=== PATIENT | male | born 1980 | race Caucasian/White ===

== ENCOUNTER → 2019-09-16 10:49 | Outpatient (CLI) | payer OTHER, MEDICAID, SELFPAY ==
--- NOTE | 2019-09-16 | DI.CT.S_ITS ---
PROCEDURE: CT LE LT W CON INDICATIONS: Arthrodesis status,Primary osteoarthritis, left ankle, foot. TECHNIQUE: Noncontrast 1-1.5 mm axial sections acquired from above the tibiotalar joint to the bottom of the calcaneus, with coronal and sagittal reformats. COMPARISON: [facility], CR, XR FOOT 3 VIEWS WEIGHT BEARING LEFT, 02/16/2019, 14:08. [facility], CR, XR FOOT 3 VIEWS WEIGHT BEARING LEFT, 09/30/2018, 16:04. [facility], CR, XR FOOT 3 VIEWS WEIGHT BEARING LEFT, 05/01/2018, 13:29. [facility], CR, XR FOOT 3 VIEWS WEIGHT BEARING LEFT, 09/26/2017, 10:00. FINDINGS: Image quality: Diagnostic Bones: There is no acute fracture, dislocation, or suspicious osseous lesion identified involving the osseous structures of the left foot. Postoperative changes related to bony fusion of the talonavicular joint are evident. There is slight lucency surrounding the more superior position orthopedic screw and potentially also be inferior orthopedic screw. The talonavicular joint line remains open. Prominent degenerative changes are noted. There is a very small plantar calcaneal spur. The bone mineralization is decreased. Soft tissues: No soft tissue masses or drainable fluid collections are identified. Please note that the ligamentous, tendinous, and cartilaginous structures are not well evaluated on CT. Incidental note is made of os tibiale externum. No significant atrophy is appreciated involving the intrinsic muscles of the foot. IMPRESSION: 1. Talonavicular joint fusion. The hardware is intact. However, lucency is surrounding the orthopedic screws does raise suspicion for loosening. 2. The talonavicular joint remains open. 3. No fractures. Dictated by: Jasper Garces M.D. on 09/16/2019 at 11:58 Approved by: Jasper Garces M.D. on 09/16/2019 at 12:25
== END ==
PROVIDERS: PCP Family Medicine
DX: M19.072 Primary osteoarthritis, left ankle and foot (principal); Z98.1 Arthrodesis status
CPT/HCPCS: 73700

== ENCOUNTER → 2021-07-28 14:25 | Outpatient (CLI) | payer OTHER, MEDICAID, SELFPAY ==
[2021-07-28 20:56] LABS: HIV 1 & 2 Ab/Ag 4th Gen Combo NEGATIVE (NEGATIVE)
[2021-07-28 21:05] LABS: Urine N gonorrhoeae NOT DETECTED
[2021-07-28 21:20] LABS: Urine Chlamydia NOT DETECTED
[2021-07-30 04:31] LABS: RPR Screen Non Reactive (Non Reactive)
[2021-07-30 08:08] LABS: HBsAg Screen Negative (Negative); Hepatitis A Antibody IgM Negative (Negative); Hepatitis B Core Antibody IgM Negative (Negative); Hepatitis C Antibody <0.1 s/co ratio (0.0-0.9)
[2021-07-30 11:07] LABS: HSV 2 IGG AB < 0.91 index (0.00-0.90); HSV1IGG < 0.91 index (0.00-0.90)
== END ==
PROVIDERS: PCP Family Medicine; Visit Provider Family Medicine
DX: Z11.3 Encounter for screening for infections with a predominantly sexual mode of transmission (principal)
CPT/HCPCS: 80074; 86592; 86695; 86696; 87389; 87491; 87591

== ENCOUNTER → 2022-06-05 11:13 | Outpatient (CLI) | payer OTHER, SELFPAY ==
--- NOTE | 2022-06-05 | DI.RAD.S_ITS ---
PROCEDURE: XR SHOULDER RT MIN 2V INDICATIONS: RIGHT SHOULDER PAIN TECHNIQUE: 3 views of the shoulder were acquired. COMPARISON: None. FINDINGS: Bones: No fractures or dislocations. No suspicious bony lesions. Visualized ribs appear intact. Humeral head is slightly high-riding. Soft tissues: No suspicious soft tissue calcifications. IMPRESSION: High riding appearance of the humeral head, which can be indicative of rotator cuff pathology. Dictated by: Isis Hardwick M.D. on 06/05/2022 at 12:41 Approved by: Isis Hardwick M.D. on 06/05/2022 at 12:41
== END ==
PROVIDERS: PCP Family Medicine; Referring Provider Internal Medicine Cardiovascular Disease; Visit Provider Internal Medicine Cardiovascular Disease
DX: M25.511 Pain in right shoulder (principal)
CPT/HCPCS: 73030

== ENCOUNTER → 2023-01-31 08:59 | Outpatient (CLI) | payer MEDICARE, MEDICAID, SELFPAY | PROVIDERS: PCP Family Medicine; Visit Provider Family Medicine | DX: F11.20 Opioid dependence, uncomplicated (principal); R82.5 Elevated urine levels of drugs, medicaments and biological substances | CPT/HCPCS: 80324 ==

== ENCOUNTER → 2023-03-05 09:29 | Outpatient (CLI) | payer MEDICARE, MEDICAID, SELFPAY ==
[2023-03-05 19:45] LABS: Add Manual Diff / Slide Review NO; Basophils Absolute Auto 100 /uL (0-100); Basophils Percent Auto 0.7 % (0-2); Eosinophils Absolute Auto 100 /uL (0-450); Eosinophils Percent Auto 1.1 % (2-4); Hematocrit 44.6 % (41-53); Hemoglobin 15.4 g/dL (13.5-17.5); Lymphocytes Absolute Auto 3000 /uL (1100-4500); Lymphocytes Percent Auto 33.9 % (25-40); Mean Corpuscular HGB Conc 34.5 % (30-36); Mean Corpuscular Hemoglobin 30.4 PG (26-34); Monocytes Absolute Auto 600 /uL (0-900); Monocytes Percent Auto 6.3 % (3-14); Neutrophils Absolute Auto 5200 /uL (1500-7000); Platelet Count 273 X10^3/uL (150-400); Red Blood Cell Count 5.07 X10^6/uL (4.5-5.9); Red Cell Distribution Width 13.3 % (11.6-14.8); White Blood Cell Count 8.9 X10^3/uL (4.5-11.0)
[2023-03-05 19:48] LABS: Alanine Aminotransferase 293 IU/L (<50); Albumin 4.3 g/dL (3.5-5.0); Albumin Globulin Ratio 1.5 (1.0-2.8); Alkaline Phosphatase 64 U/L (38-126); Aspartate Aminotransferase 83 IU/L (17-59); BUN Creatinine Ratio 12.5 (6-22); Bilirubin Total 1.3 mg/dL (0.2-1.3); Blood Urea Nitrogen 13 mg/dL (9-20); Calcium 9.1 mg/dL (8.4-10.2); Carbon Dioxide 30 mmol/L (22-32); Chloride 102 mmol/L (98-107); Cholesterol 211 mg/dL (140-199); Estimated Glomerular Filt Rate > 60 mL/min (>60); Globulin 2.8 g/dL (1.7-4.1); Glucose 100 mg/dL (70-100); HDL Cholesterol 46 mg/dL (40-60); HEMOLYSIS < 15 (0-50); LDL Cholesterol Calculated 145 mg/dL (<100); Potassium 4.8 mmol/L (3.4-5.1); Sodium 137 mmol/L (137-145); Total Protein 7.1 g/dL (6.3-8.2); Triglycerides 102 mg/dL (35-150)
[2023-03-05 20:17] LABS: TSH w/ Reflex to FT4 1.44 uIU/mL (0.47-4.68)
[2023-03-07 03:09] LABS: Labcorp Hemoglobin (Hb) A1c 5.5 % (4.8-5.6)
== END ==
PROVIDERS: PCP Family Medicine; Visit Provider Family Medicine
DX: Z79.899 Other long term (current) drug therapy (principal)
CPT/HCPCS: 80053; 80061; 83036; 84443; 85025

== ENCOUNTER → 2023-04-22 11:34 | Outpatient (CLI) | payer MEDICARE, MEDICAID, SELFPAY ==
[2023-04-22 19:46] LABS: Alanine Aminotransferase 141 IU/L (<50); Albumin 4.4 g/dL (3.5-5.0); Albumin Globulin Ratio 1.6 (1.0-2.8); Alkaline Phosphatase 66 U/L (38-126); Aspartate Aminotransferase 55 IU/L (17-59); Bilirubin Total 1.4 mg/dL (0.2-1.3); Bilirubin Unconjugated 1.2 mg/dL (0.0-1.1); Globulin 2.8 g/dL (1.7-4.1); HEMOLYSIS < 15 (0-50); Total Protein 7.2 g/dL (6.3-8.2)
[2023-04-24 03:15] LABS: HBsAg Screen Negative (Negative); Hepatitis A Antibody IgM Negative (Negative); Hepatitis B Core Antibody IgM Negative (Negative); Hepatitis C Antibody Non Reactive (Non Reactive)
== END ==
PROVIDERS: PCP Family Medicine; Visit Provider Family Medicine
DX: R79.89 Other specified abnormal findings of blood chemistry (principal)
CPT/HCPCS: 80074; 80076; 80305

== ENCOUNTER → 2023-09-04 13:39 | Outpatient (CLI) | payer MEDICARE, MEDICAID, SELFPAY ==
[2023-09-04 19:58] LABS: HEMOLYSIS 20 (0-50); Iron 99 ug/dL (49-181)
[2023-09-04 19:59] LABS: Alanine Aminotransferase 136 IU/L (<50); Albumin 4.6 g/dL (3.5-5.0); Albumin Globulin Ratio 1.4 (1.0-2.8); Alkaline Phosphatase 65 U/L (38-126); Aspartate Aminotransferase 58 IU/L (17-59); BUN Creatinine Ratio 10.7 (6-22); Bilirubin Total 1.1 mg/dL (0.2-1.3); Blood Urea Nitrogen 13 mg/dL (9-20); Calcium 9.9 mg/dL (8.4-10.2); Carbon Dioxide 29 mmol/L (22-32); Chloride 99 mmol/L (98-107); Estimated Glomerular Filt Rate > 60 mL/min (>60); Globulin 3.2 g/dL (1.7-4.1); Glucose 85 mg/dL (70-100); HEMOLYSIS < 15 (0-50); Potassium 4.3 mmol/L (3.4-5.1); Sodium 138 mmol/L (137-145); Total Protein 7.8 g/dL (6.3-8.2)
[2023-09-04 20:04] LABS: Hemoglobin A1C% w Est Avg Glu 5.5 % (4.0-6.0)
[2023-09-04 20:17] LABS: LDL Cholesterol Direct 144 mg/dL (<100)
[2023-09-04 20:21] LABS: Percent Iron Saturation 31 % (20-50); Total Iron Binding Capacity 317 ug/dL (261-462); Transferrin 256 mg/dL (206-381)
[2023-09-04 20:35] LABS: Ferritin 69 ng/mL (18-464)
[2023-09-06 05:44] LABS: Ceruloplasmin 20.2 mg/dL (16.0-31.0)
== END ==
PROVIDERS: PCP Family Medicine; Visit Provider Family Medicine
DX: R03.0 Elevated blood-pressure reading, without diagnosis of hypertension (principal); E78.2 Mixed hyperlipidemia; Z82.49 Family history of ischemic heart disease and other diseases of the circulatory system; Z79.899 Other long term (current) drug therapy
CPT/HCPCS: 80053; 82390; 82728; 83036; 83540; 83550; 83721

== ENCOUNTER → 2024-04-27 08:50 | Outpatient (CLI) | payer MEDICARE, MEDICAID, SELFPAY ==
[2024-04-27 19:49] LABS: Add Manual Diff / Slide Review NO; Basophils Absolute Auto 100 /uL (0-100); Basophils Percent Auto 0.7 % (0-2); Eosinophils Absolute Auto 300 /uL (0-450); Eosinophils Percent Auto 3.8 % (2-4); Hematocrit 46.7 % (41-53); Hemoglobin 15.9 g/dL (13.5-17.5); Lymphocytes Absolute Auto 2500 /uL (1100-4500); Lymphocytes Percent Auto 30.8 % (25-40); Mean Corpuscular HGB Conc 34.2 % (30-36); Mean Corpuscular Hemoglobin 30.3 PG (26-34); Mean Corpuscular Volume 88.8 fL (80-100); Monocytes Absolute Auto 600 /uL (0-900); Monocytes Percent Auto 7.1 % (3-14); Neutrophils Absolute Auto 4600 /uL (1500-7000); Neutrophils Percent Auto 57.6 % (50-75); Platelet Count 296 X10^3/uL (150-400); Red Blood Cell Count 5.26 X10^6/uL (4.5-5.9)
[2024-04-27 19:53] LABS: Alanine Aminotransferase 59 IU/L (<50); Albumin 4.7 g/dL (3.5-5.0); Albumin Globulin Ratio 1.5 (1.0-2.8); Alkaline Phosphatase 71 U/L (38-126); Aspartate Aminotransferase 37 IU/L (17-59); BUN Creatinine Ratio 16.1 (6-22); Bilirubin Total 1.2 mg/dL (0.2-1.3); Blood Urea Nitrogen 19 mg/dL (9-20); Calcium 9.7 mg/dL (8.4-10.2); Carbon Dioxide 29 mmol/L (22-32); Chloride 105 mmol/L (98-107); Cholesterol 246 mg/dL (140-199); Estimated Glomerular Filt Rate > 60 mL/min (>60); Globulin 3.2 g/dL (1.7-4.1); Glucose 96 mg/dL (70-100); HDL Cholesterol 55 mg/dL (40-60); HEMOLYSIS 24 (0-50); LDL Cholesterol Calculated 149 mg/dL (<100); Potassium 4.9 mmol/L (3.4-5.1); Sodium 141 mmol/L (137-145); Total Protein 7.9 g/dL (6.3-8.2); Triglycerides 210 mg/dL (35-150)
[2024-04-27 19:58] LABS: Hemoglobin A1C% w Est Avg Glu 5.4 % (4.0-6.0)
== END ==
PROVIDERS: PCP Family Medicine; Visit Provider Family Medicine
DX: R03.0 Elevated blood-pressure reading, without diagnosis of hypertension (principal); E78.2 Mixed hyperlipidemia; Z82.49 Family history of ischemic heart disease and other diseases of the circulatory system
CPT/HCPCS: 80053; 80061; 83036; 85025

== ENCOUNTER → 2024-07-28 12:59 | Outpatient (CLI) | payer MEDICARE, MEDICAID, SELFPAY ==
[2024-07-28 19:33] LABS: HEMOLYSIS < 15 (0-50)
[2024-07-28 19:38] LABS: Alanine Aminotransferase 194 IU/L (<50); Albumin 4.1 g/dL (3.5-5.0); Albumin Globulin Ratio 1.4 (1.0-2.8); Alkaline Phosphatase 74 U/L (38-126); Aspartate Aminotransferase 76 IU/L (17-59); BUN Creatinine Ratio 14.4 (6-22); Bilirubin Total 0.8 mg/dL (0.2-1.3); Blood Urea Nitrogen 14 mg/dL (9-20); Calcium 9.2 mg/dL (8.4-10.2); Carbon Dioxide 29 mmol/L (22-32); Chloride 102 mmol/L (98-107); Estimated Glomerular Filt Rate > 60 mL/min (>60); Globulin 2.9 g/dL (1.7-4.1); Glucose 93 mg/dL (70-100); Potassium 4.4 mmol/L (3.4-5.1); Sodium 137 mmol/L (137-145)
[2024-07-28 19:42] LABS: Hemoglobin A1C% w Est Avg Glu 5.2 % (4.0-6.0)
[2024-07-28 20:09] LABS: TSH w/ Reflex to FT4 1.26 uIU/mL (0.47-4.68)
[2024-07-29 02:35] LABS: LDL Cholesterol Direct 167 mg/dL (<100)
== END ==
PROVIDERS: PCP Family Medicine; Visit Provider Family Medicine
DX: E78.2 Mixed hyperlipidemia (principal); R79.89 Other specified abnormal findings of blood chemistry; R03.0 Elevated blood-pressure reading, without diagnosis of hypertension; G89.29 Other chronic pain; R00.0 Tachycardia, unspecified
CPT/HCPCS: 80053; 83036; 83721; 84443

== ENCOUNTER → 2025-04-13 12:09 | Outpatient (CLI) | payer MEDICARE, MEDICAID, SELFPAY ==
[2025-04-13 18:54] LABS: Add Manual Diff / Slide Review NO; Basophils Absolute Auto 0 /uL (0-100); Basophils Percent Auto 0.5 % (0-2); Eosinophils Absolute Auto 0 /uL (0-450); Eosinophils Percent Auto 0.5 % (2-4); Hemoglobin 15.5 g/dL (13.5-17.5); Lymphocytes Absolute Auto 2300 /uL (1100-4500); Lymphocytes Percent Auto 27.4 % (25-40); Mean Corpuscular HGB Conc 33.6 % (30-36); Mean Corpuscular Hemoglobin 30.6 PG (26-34); Monocytes Absolute Auto 700 /uL (0-900); Monocytes Percent Auto 8.3 % (3-14); Neutrophils Absolute Auto 5400 /uL (1500-7000); Neutrophils Percent Auto 63.3 % (50-75); Platelet Count 302 X10^3/uL (150-400); Red Blood Cell Count 5.06 X10^6/uL (4.5-5.9); Red Cell Distribution Width 13.1 % (11.6-14.8); White Blood Cell Count 8.6 X10^3/uL (4.5-11.0)
[2025-04-13 19:06] LABS: Alanine Aminotransferase 89 IU/L (<50); Albumin 4.9 g/dL (3.5-5.0); Albumin Globulin Ratio 1.8 (1.0-2.8); Alkaline Phosphatase 73 U/L (38-126); Aspartate Aminotransferase 44 IU/L (17-59); BUN Creatinine Ratio 20.4 (6-22); Bilirubin Total 1.3 mg/dL (0.2-1.3); Blood Urea Nitrogen 19 mg/dL (9-20); Calcium 9.6 mg/dL (8.4-10.2); Carbon Dioxide 27 mmol/L (22-32); Chloride 103 mmol/L (98-107); Estimated Glomerular Filt Rate > 60 mL/min (>60); Globulin 2.7 g/dL (1.7-4.1); Glucose 105 mg/dL (70-99); HEMOLYSIS < 15 (0-50); Potassium 4.5 mmol/L (3.4-5.1); Sodium 138 mmol/L (137-145); Total Protein 7.6 g/dL (6.3-8.2)
[2025-04-13 19:17] LABS: LDL Cholesterol Direct 147 mg/dL (<100)
[2025-04-13 20:01] LABS: Thyroid Stimulating Hormone 1.24 uIU/mL (0.47-4.68)
[2025-04-15 00:08] LABS: HBsAg Screen Negative (Negative); Hepatitis A Antibody IgM Negative (Negative); Hepatitis B Core Antibody IgM Negative (Negative); Hepatitis C Antibody Non Reactive (Non Reactive)
[2025-04-15 04:09] LABS: Ceruloplasmin 21.8 mg/dL (16.0-31.0)
== END ==
PROVIDERS: PCP Family Medicine; Visit Provider Family Medicine
DX: R17 Unspecified jaundice (principal); E78.2 Mixed hyperlipidemia; R79.89 Other specified abnormal findings of blood chemistry; K75.9 Inflammatory liver disease, unspecified; R03.0 Elevated blood-pressure reading, without diagnosis of hypertension; I10 Essential (primary) hypertension
CPT/HCPCS: 80053; 80074; 82390; 83036; 83721; 84443; 85025; 86038

== ENCOUNTER → 2025-09-14 11:34 | Outpatient (CLI) | payer MEDICARE, MEDICAID, SELFPAY ==
[2025-09-14 19:22] LABS: Hematocrit 42.4 % (41-53); Hemoglobin 14.8 g/dL (13.5-17.5); Mean Corpuscular HGB Conc 34.9 % (30-36); Mean Corpuscular Hemoglobin 30.6 PG (26-34); Mean Corpuscular Volume 87.6 fL (80-100); Platelet Count 318 X10^3/uL (150-400)
[2025-09-14 19:30] LABS: Alanine Aminotransferase 84 IU/L (<50); Albumin 4.9 g/dL (3.5-5.0); Albumin Globulin Ratio 1.6 (1.0-2.8); Alkaline Phosphatase 73 U/L (38-126); Blood Urea Nitrogen 15 mg/dL (9-20); Calcium 9.4 mg/dL (8.4-10.2); Carbon Dioxide 28 mmol/L (22-32); Chloride 99 mmol/L (98-107); Cholesterol 167 mg/dL (140-199); Estimated Glomerular Filt Rate > 60 mL/min (>60); Globulin 3.0 g/dL (1.7-4.1); Glucose 96 mg/dL (70-99); HDL Cholesterol 63 mg/dL (40-60); HEMOLYSIS 21 (0-50); Hemoglobin A1C% w Est Avg Glu 5.4 % (4.0-6.0); Potassium 4.5 mmol/L (3.4-5.1); Sodium 138 mmol/L (137-145); Total Protein 7.9 g/dL (6.3-8.2); Triglycerides 151 mg/dL (35-150)
[2025-09-14 19:36] LABS: Atypical Lymphocytes Percent 4.0 %; Eosinophils Percent Manual 2.0 % (2-4); Lymphocytes Percent Manual 34.0 % (25-45); Monocytes Percent Manual 14.0 % (2-11); Neutrophils Absolute Manual 2806 /uL (3000-5900); Segmented Neutrophils Percent 46.0 % (38-70); Total Cells Counted 100
[2025-09-14 19:37] LABS: RBC Morphology Normal Morphology
[2025-09-14 19:48] LABS: INR 1.0 (0.9-1.3); PTT Partial Thromboplastin Tim 31 SECONDS (25.1-36.5); Prothrombin Time 11.1 SECONDS (9.4-12.5)
== END ==
PROVIDERS: PCP Family Medicine; Visit Provider Family Medicine
DX: R79.89 Other specified abnormal findings of blood chemistry (principal); R23.3 Spontaneous ecchymoses; R58 Hemorrhage, not elsewhere classified; Z79.899 Other long term (current) drug therapy; Z01.89 Encounter for other specified special examinations; Z91.89 Other specified personal risk factors, not elsewhere classified
CPT/HCPCS: 80053; 80061; 83036; 85025; 85610; 85730